=== PATIENT | male | born 1950 | race Caucasian/White ===

== ENCOUNTER 2017-10-13 06:57 | Outpatient (CLI) | payer MEDICARE | END 2017-10-13 06:58 | disposition home or self-care (01) | LOC: BICMRI 06:57 | PROVIDERS: ATTEND Family Medicine | DX: M51.17 Intervertebral disc disorders with radiculopathy, lumbosacral region (principal) | CPT/HCPCS: 72148 ==

== ENCOUNTER 2019-03-30 10:46 | Outpatient (CLI) | payer MEDICARE ==
--- NOTE | 2019-03-30 12:40 | RAD ---
2 VIEWS CHEST: Date: 03/30/19 COMPARISON: 11/06/16. HISTORY: Dyspnea. FINDINGS: 2 views of the chest show normal sized cardiomediastinal silhouette. The patient is status post allen otomy. There is no evidence of consolidation, mass, or pleural effusion. An anastomotic staple line p rojects over the left lower lobe from prior left lung surgery. IMPRESSION: No evidence of acute cardiopulmonary disease. POS: [facility]
== END 2019-03-30 10:47 | disposition home or self-care (01) ==
LOC: RAD 10:46
PROVIDERS: ATTEND Internal Medicine Critical Care Medicine
DX: R06.00 Dyspnea, unspecified (principal)
CPT/HCPCS: 71046

== ENCOUNTER 2019-06-22 17:00 | Outpatient (CLI) | payer MEDICARE | END 2019-06-22 17:01 | disposition home or self-care (01) | LOC: SLEEPLAB 17:00 | PROVIDERS: ATTEND Internal Medicine Critical Care Medicine | DX: G47.33 Obstructive sleep apnea (adult) (pediatric) (principal); R53.83 Other fatigue; I10 Essential (primary) hypertension; E66.9 Obesity, unspecified | CPT/HCPCS: 95806 ==

== ENCOUNTER 2020-05-21 09:26 | Outpatient (CLI) | payer MEDICARE ==
--- NOTE | 2020-05-21 09:40 | RAD ---
RADIOGRAPH CHEST 2 VIEWS: DATE: 05/21/2020 HISTORY: 70-year-old male with dyspnea. COMPARISON: 03/30/2019 FINDINGS: There is no airspace density, pulmonary edema, pleural effusion, pneumothorax, or cardiomegaly. Again noted are the sternotomy wires and the patchy small focal density at left lateral lower lung zone on frontal view representing prominent pericardial fat pad. The only new finding is a new patch of quijano bsegmental atelectasis at the posterior base of the right lower lobe. IMPRESSION: No acute cardiopulmonary findings.
== END 2020-05-21 09:27 | disposition home or self-care (01) ==
LOC: BICRAD 09:26
PROVIDERS: ATTEND Internal Medicine Critical Care Medicine
DX: R06.00 Dyspnea, unspecified (principal)
CPT/HCPCS: 71046

== ENCOUNTER 2021-05-07 10:35 | Outpatient (CLI) | payer MEDICARE | END 2021-05-07 10:36 | disposition home or self-care (01) | LOC: BICRAD 10:35 | PROVIDERS: ATTEND Internal Medicine Critical Care Medicine | DX: R06.00 Dyspnea, unspecified (principal); R91.1 Solitary pulmonary nodule | CPT/HCPCS: 71046 ==

== ENCOUNTER 2021-06-29 14:45 | Emergency (ER) | payer MEDICARE ==
[2021-06-29] MEDS ORDERED: Clindamycin/D5W 900 mg/50 ml Premix Bag ONE (15:35)
== END 2021-06-29 17:57 | disposition home or self-care (01) ==
LOC: ERS 14:45
DX: L03.116 Cellulitis of left lower limb (principal); I10 Essential (primary) hypertension
CPT/HCPCS: 96365; J3490

== ENCOUNTER 2022-07-31 05:33 | Day surgery (SDC) | payer MEDICARE ==
[2022-07-29 12:37] VITALS: BMI 29.9
[2022-07-31] MEDS ORDERED: Lidocaine 1% (PF) 30 ML VIAL ONE (06:18)
[2022-07-31] MEDS ORDERED: Protamine Sulfate 50 MG/5 ML VIAL ONE (06:28)
[2022-07-31] MEDS ORDERED: Heparin 10,000 UNITS/ 10 ML VIAL ONE ×2 (06:28→08:19)
[2022-07-31] MEDS ORDERED: Midazolam HCl 2 mg/2 ml Vial ONE (07:06)
[2022-07-31] MEDS ORDERED: Fentanyl 100 MCG/2 ML VIAL ONE (07:06)
[2022-07-31] MEDS ORDERED: Aggrastat 12.5 MG/250 ML 250 ML ONE (07:49)
[2022-07-31] MEDS ORDERED: Clopidogrel Bisulfate 300 MG TAB ONE ×2 (07:54→07:56)
[2022-07-31] MEDS ORDERED: Mag-Al 1200 mg/1200 mg/30 ML UDCUP PO SCH (08:30)
[2022-07-31] MEDS ORDERED: Iopamidol 370 76% 50 ML VIAL FS ONE (09:14)
[2022-07-31] MEDS ORDERED: Iopamidol 370 76% 100 ML VIAL ONE (09:14)
[2022-07-31] MEDS ORDERED: Losartan 25 MG TAB PO SCH (10:45)
[2022-07-31] MEDS ORDERED: Acetaminophen 500 MG TAB ONE (13:05)
[2022-07-31] MEDS ORDERED: Morphine 4 MG/ML VIAL SLOW IVP PRN (14:27)
[2022-07-31] MEDS ORDERED: Morphine 4 MG/ML VIAL ONE (14:36)
== END 2022-07-31 18:20 | disposition home or self-care (01) ==
LOC: SDC 05:33
PROVIDERS: ATTEND Family Medicine
PROC: 027135Z Dilation of Coronary Artery, Two Arteries with Two Drug-eluting Intraluminal Devices, Percutaneous Approach (ICD-10-PCS; principal; 2022-07-31)
PROC: 4A023N7 Measurement of Cardiac Sampling and Pressure, Left Heart, Percutaneous Approach (ICD-10-PCS; 2022-07-31)
PROC: B2111ZZ Fluoroscopy of Multiple Coronary Arteries using Low Osmolar Contrast (ICD-10-PCS; 2022-07-31)
DX: I25.10 Atherosclerotic heart disease of native coronary artery without angina pectoris (principal); I10 Essential (primary) hypertension; E78.00 Pure hypercholesterolemia, unspecified; I34.0 Nonrheumatic mitral (valve) insufficiency; J45.909 Unspecified asthma, uncomplicated; G47.33 Obstructive sleep apnea (adult) (pediatric); Z79.620 Long term (current) use of immunosuppressive biologic; Z79.82 Long term (current) use of aspirin; Z79.899 Other long term (current) drug therapy; Z88.8 Allergy status to other drugs, medicaments and biological substances; Z91.040 Latex allergy status; Z95.1 Presence of aortocoronary bypass graft
CPT/HCPCS: 74176; 85347 ×2; 93005; 93459; 97139; C1769 ×2; C1874 ×3; C1887; C1894; C9604; J3246; 92937; 99152; 99153; J1644; J2001; J2250; J2270; J2720; J3010; Q9967

== ENCOUNTER 2023-03-09 13:08 | Outpatient (CLI) | payer MEDICARE | END 2023-03-09 13:09 | disposition home or self-care (01) | LOC: CT 13:08 | PROVIDERS: ATTEND Internal Medicine Critical Care Medicine | DX: R91.8 Other nonspecific abnormal finding of lung field (principal) | CPT/HCPCS: 71250 ==

== ENCOUNTER 2024-04-21 14:48 | Outpatient (CLI) | payer MEDICARE | END 2024-04-21 14:49 | disposition home or self-care (01) | LOC: BICCT 14:48 | PROVIDERS: ATTEND Internal Medicine Critical Care Medicine | DX: R91.8 Other nonspecific abnormal finding of lung field (principal) | CPT/HCPCS: 71250 ==

== ENCOUNTER 2025-07-24 08:44 | Outpatient (CLI) | payer MEDICARE | END 2025-07-24 08:45 | disposition home or self-care (01) | LOC: RAD 08:44 | PROVIDERS: ATTEND Internal Medicine Critical Care Medicine | DX: R06.00 Dyspnea, unspecified (principal); J98.4 Other disorders of lung; Z98.890 Other specified postprocedural states | CPT/HCPCS: 71046 ==